=== PATIENT | male | born 1980 | race Asian ===

== ENCOUNTER 2023-08-10 14:57 | Emergency (ER) | payer MEDICAID ==
[~2023-08-10] VITALS: Ht 177.8 cm; Wt 86.2 kg
[2023-08-10 15:08] VITALS: BP_SYST 126; PULSE 65; RESP 18; TEMP 96.9; O2SAT 97
[2023-08-10 15:59] LABS: BASOPHILS % (AUTO) 0.4 % (0.0-2.0); EOSINOPHILS % (AUTO) 0.3 % (0.0-4.0); HEMATOCRIT 43.7 % (36-54); HEMOGLOBIN 14.7 g/dL (14.0-18.0); LYMPHOCYTES % (AUTO) 7.9 % (20.5-51.5); MEAN CORPUSCULAR HEMOGLOBIN 30 pg (27-31); MEAN CORPUSCULAR HGB CONC 34 % (32-36); MEAN CORPUSCULAR VOLUME 89 fL (79.0-98.0); MONOCYTES # (AUTO) 0.5 K/uL (0.0-1.0); MONOCYTES % (AUTO) 4.2 % (1.7-9.3); NEUTROPHILS # (AUTO) 11.1 K/uL (1.8-7.7); NEUTROPHILS % (AUTO) 87.2 % (40.0-70.0); PLATELET COUNT (AUTO) 218 K/uL (130-430); RED CELL DISTRIBUTION WIDTH 13.7 % (9.0-15.0); WHITE BLOOD COUNT (AUTO) 12.7 K/uL (4.8-10.8)
[2023-08-10 16:17] LABS: ANION GAP 6 (5-15); CALCIUM 8.6 mg/dL (8.4-11.0); CARBON DIOXIDE 29 mmol/L (23-29); CHLORIDE 109 mmol/L (98-107); CREATINE KINASE, TOTAL 668 U/L (39-308); CREATININE 0.89 mg/dL (0.55-1.30); FREE T4 (FREE THYROXINE) 1.1 ng/dl (0.8-1.5); GFR AFRICAN AMERICAN 121 mL/min (>90); GFR NON AFRICAN-AMERICAN 100 mL/min (>90); GLUCOSE 77 mg/dL (74-106); POTASSIUM 4.1 mmol/L (3.5-5.1); SODIUM SERUM 144 mmol/L (136-145); THYROID STIMULATING HORMONE 1.64 uIu/mL (0.36-3.74); UREA NITROGEN, BLOOD 26 mg/dL (8-21)
[2023-08-10 16:18] LABS: ALCOHOL, BLOOD < 3 mg/dL (<10)
[2023-08-10] MEDS: ONDANSETRON HCL 4 MG/2 ML VIAL IVP ONE (16:24)
[2023-08-10] MEDS: NACL 0.9% 1,000 ML IV ONE ×3 (16:24→20:47)
[2023-08-10 16:44] LABS: CKMB RELATIVE INDEX 0.7 (0.0-2.9); CREATINE KINASE MB 4.5 ng/mL (0-3.6)
[2023-08-10 16:48] LABS: INFLUENZA TYPE A Negative (NEGATIVE); INFLUENZA TYPE B NEGATIVE (NEGATIVE)
[2023-08-10 17:02] LABS: BILIRUBIN,URINE NEGATIVE (NEGATIVE); BLOOD, URINE NEGATIVE (NEGATIVE); CLARITY/URINE CLEAR (CLEAR); COLOR,URINE YELLOW (YELLOW); GLUCOSE,URINE NEGATIVE (NEGATIVE); KETONES,URINE TRACE (NEGATIVE); LEUKOCYTE ESTERASE ,URINE NEGATIVE (NEGATIVE); NITRITE, URINE NEGATIVE (NEGATIVE); PH,URINE 6.5 (5.0-8.0); PROTEIN URINE NEGATIVE (NEGATIVE); UROBILINOGEN,URINE 0.2 (0.2-1.0)
[2023-08-10] MEDS: DIPHTH,PERTUSS(ACELL),TET VAC 0.5 ML VIAL (Tdap) I.M. ONE (17:46)
[2023-08-10] MEDS: LIDOCAINE 2%, 20 ML MDV INJ ONE (17:48)
[2023-08-10 20:19] LABS: CALCIUM 7.7 mg/dL (8.4-11.0); CREATININE 0.79 mg/dL (0.55-1.30); POTASSIUM 4.2 mmol/L (3.5-5.1)
[2023-08-10 20:42] LABS: CKMB RELATIVE INDEX 0.6 (0.0-2.9); CREATINE KINASE MB 3.8 ng/mL (0-3.6)
[2023-08-10 21:27] LABS: BARBITURATE, URINE NEGATIVE (NEG <=200); BENZODIAZEPINE, URINE NEGATIVE (NEG <=150); CANNABINOID, URINE NEGATIVE (NEG <=50); COCAINE, URINE NEGATIVE (NEG <=150); METHAMPHETAMINES SCREEN,URINE NEGATIVE (NEG <=500); OPIATE, URINE NEGATIVE (NEG <=100); PHENCYCLIDINE SCREEN,URINE NEGATIVE (NEG <=25); UR TRICYCLIC ANTIDEPRESSANTS NEGATIVE (NEG <=300); URINE AMPHETAMINE NEGATIVE (NEG <=500); URINE METHADONE NEGATIVE (NEG <=200); URINE OXYCODONE SCREEN NEGATIVE (NEG <=100)
[2023-08-10 21:51] VITALS: BP_SYST 143; PULSE 74; RESP 16; TEMP 96.9; O2SAT 96
== END 2023-08-10 22:12 | disposition home or self-care (01) ==
LOC: SED 14:57
DX: S01.511A Laceration without foreign body of lip, initial encounter (principal); R55 Syncope and collapse; M62.82 Rhabdomyolysis; E86.0 Dehydration; R11.0 Nausea; Z79.899 Other long term (current) drug therapy; Z20.822 Contact with and (suspected) exposure to COVID-19; W26.8XXA Contact with other sharp object(s), not elsewhere classified, initial encounter; Y93.89 Activity, other specified; Y92.89 Other specified places as the place of occurrence of the external cause; Y99.8 Other external cause status
CPT/HCPCS: 99285; 96374; 96361; 70450; 71045; 87426; 80307; 80048; 81001; 82550; 82553; 83880; 84439; 84443; 85025; 84484; 36415; 93005; 90715; 82948; 87804 ×2; 90471; 12011; 81003; G0482; J2405; J7030; J2001

== ENCOUNTER 2024-02-03 00:08 | Emergency (ER) | payer MEDICAID ==
[~2024-02-03] VITALS: Ht 177.8 cm; Wt 86.2 kg
[2024-02-03 00:16] VITALS: BP_SYST 143; PULSE 92; RESP 19; TEMP 98; O2SAT 93
[2024-02-03] MEDS: LIDOCAINE 1% 10 MG/ML, 20 ML MDV INJ ONE (01:15)
[2024-02-03] MEDS: DIPHTH,PERTUSS(ACELL),TET VAC 0.5 ML VIAL (Tdap) I.M. ONE (01:15)
[2024-02-03 03:45] VITALS: BP_SYST 127; PULSE 58; RESP 16; TEMP 97.9; O2SAT 96
[2024-02-03] MEDS ORDERED: FAMOTIDINE PF 20 MG/2 ML VIAL ONE (06:41)
== END 2024-02-03 03:45 | disposition home or self-care (01) ==
LOC: SED 00:08
DX: S81.011A Laceration without foreign body, right knee, initial encounter (principal); S40.212A Abrasion of left shoulder, initial encounter; R03.0 Elevated blood-pressure reading, without diagnosis of hypertension; Z23 Encounter for immunization; V89.2XXA Person injured in unspecified motor-vehicle accident, traffic, initial encounter; Y93.89 Activity, other specified; Y92.89 Other specified places as the place of occurrence of the external cause; Y99.8 Other external cause status
CPT/HCPCS: 99284; 71045; 73030; 73564; 90715; 90471; 12001; J2003; J3490